=== PATIENT | male | born 1970 | race Caucasian/White ===

== ENCOUNTER 2018-11-09 11:06 | Emergency (ER) | payer OTHER ==
[2018-11-09 11:23] VITALS: BP 135/87
--- NOTE | 2018-11-09 11:56 | UC ---
Lower Extremity/Ankle HPI - HPI Summary HPI Summary: 48-year-old with the complaint of increasing pain at the bottom of his left foot over the past 3 days. He was wearing a boot when a nail went into his foot in the area just distal to the calcaneus bone. 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 He didn't notice any discomfort until the last day and now the area is significantly tender to touch. The patient is a heavy smoker but denies any significant past medical history. There is a history of diabetes in his family. The patient has no primary care. His vital signs are stable. His blood pressure is hypertensive at 135/87. He reports 5/10 pain to the left foot. Nurses note: "stepped on nail with left foot, 3 days ago. he states that the pain has persisted and he is concerned it is getting infected. last tetanus vaccine was 3-4 years ago." - History of Current Complaint Chief Complaint: UCLowerExtremity Stated Complaint: PUNCTURE WOUND TO FOOT Time Seen by Provider: 11/09/18 11:45 Pain Intensity: 5 - Allergies/Home Medications Allergies/Adverse Reactions: Allergies Allergy/AdvReac Type Severity Reaction Status Date / Time No Known Allergies Allergy Verified 11/09/18 11:23 Home Medications: Home Medications Ibuprofen TAB* [Advil TAB*] 800 mg PO ONCE PRN 11/09/18 [History Confirmed 11/09] PMH/Surg Hx/FS Hx/Imm Hx - Additional Past Medical History Additional PMH: PAST MEDICAL HISTORY: Patient denies significant past medical history including serious illness or surgery. Family history: Diabetes mellitus. 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 Previously Healthy: Yes - Surgical History Surgical History: None - Family History Known Family History: Positive: Hypertension - Social History Alcohol Use: Weekly Substance Use Type: None Smoking Status (MU): Heavy Every Day Tobacco Smoker Type: Cigarettes Amount Used/How Often: 1/2 PPD Length of Time of Smoking/Using Tobacco: 25 YEARS Review of Systems All Other Systems Reviewed And Are Negative: Yes Constitutional: Positive: Negative. Negative: Fever Skin: Negative: Rash, Bruising Respiratory: Positive: Negative Cardiovascular: Positive: Negative Gastrointestinal: Positive: Negative Genitourinary: Positive: Negative Musculoskeletal: Positive: Myalgia - Pain to palpation and with walking on the bottom of the left foot. Negative: Edema Physical Exam - Summary Physical Exam Summary: Appearance: The patient is well-appearing, is in no pain or distress, and is well-nourished. Eyes: Conjunctiva are clear. Pupils are equal and reactive to light and accommodation. Extra ocular muscle movement is intact. ENT: The hearing is grossly normal, the pharynx is normal, and the TMs are normal. There is no muffled or hoarse voice. No stridor. Neck: The neck is supple and there is no lymphadenopathy. Respiratory: The chest is nontender to palpation and without crepitus. The lungs are clear, there are normal breath sounds, and there is no respiratory distress. No wheezes, rales or rhonchi. Cardiovascular: Heart sounds reveal a regular rate and rhythm. There are no clicks, rubs or murmurs. There are no carotid bruits or thrills. Circulation is grossly intact. Abdomen: The abdomen is soft and nontender. There is no organomegaly. Bowel sounds are present and within normal limits. No point tenderness at McBurneys point. Musculoskeletal: Strength is intact. The patient moves all extremities. The bottom of the left foot shows a puncture wound that is closed that is approximately 2 mm in diameter. It is located just distal to the calcaneus bone. There is slight edema around the wound but no erythema. However, it is very tender to palpation. There is no ascending lymphangitis or cellulitis. Neurological: The patient is alert. Motor and sensory are examination grossly intact. Speech is normal. Psychological: The patient displays age appropriate behavior Skin: Negative for rashes. Triage Information Reviewed: Yes Vital Signs: Initial Vital Signs Temp 98.2 F 11/09/18 11:21 Pulse 73 11/09/18 11:21 Resp 16 11/09/18 11:21 BP 135/87 11/09/18 11:21 Pulse Ox 98 11/09/18 11:21 Lower Extremity Course/Dx - Course Course Of Treatment: 48-year-old with the complaint of increasing pain at the bottom of his left foot over the past 3 days. He was wearing a boot when a nail went into his foot in the area just distal to the calcaneus bone. 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 He didn't notice any discomfort until the last day and now the area is significantly tender to touch. The patient is a heavy smoker but denies any significant past medical history. There is a history of diabetes in his family. The patient has no primary care. His vital signs are stable. His blood pressure is hypertensive at 135/87. He reports 5/10 pain to the left foot. X RAY IMPRESSION: NO ACUTE OSSEOUS INJURY. NO APPRECIABLE EROSION OR PERIOSTEAL REACTION. PLAIN FILM FINDINGS OF OSTEOMYELITIS ARE RELATIVELY LATE FINDINGS. IF THERE IS PERSISTENT CLINICAL CONCERN FOR OSTEOMYELITIS, RECOMMEND CORRELATION WITH FOLLOWUP IMAGING, THREE- PHASE BONE SCANNING, WHITE BLOOD CELL SCAN, AND/OR MRI OF THE AFFECTED REGION. - Differential Dx/Diagnosis Differential Diagnosis/HQI/PQRI: Contusion, Fracture (Closed), Septic Arthritis , Sprain, Strain Provider Diagnosis: Puncture wound, Cellulitis Discharge - Sign-Out/Discharge Documenting (check all that apply): Patient Departure All imaging exams completed and their final reports reviewed: Yes - Discharge Plan Condition: Stable Disposition: HOME Prescriptions: Cephalexin CAP* [Keflex 500 CAP*] 500 mg PO QID #20 cap MDD 4 Levofloxacin TAB* [Levaquin TAB*] 750 mg PO DAILY #5 tab MDD 1 Patient Education Materials: Cellulitis (DC) Forms: *Gen. Provider Communication, *Work Release Referrals: No Primary Care Phys,NOPCP [Primary Care Provider] - Additional Instructions: WE DISCUSSED: PLEASE SEEK CARE AT THE EMERGENCY DEPARTMENT IF SYMPTOMS WORSEN OR IF NEW SYMPTOMS DEVELOP. FOLLOW UP WITH YOUR PRIMARY CARE PHYSICIAN IF CONDITION CONTINUES BEYOND 3 DAYS WITHOUT IMPROVEMENT. We are open from 7 a.m. to 10 p.m. Call us with any questions or concerns. YOUR DIAGNOSIS IS: SKIN INFECTION, CELLULITIS AT THE BOTTOM OF YOUR LEFT FOOT. ON X-RAY, THERE WAS NO EVIDENCE THAT THE NAIL PUNCTURED THE BONE. YOUR PRESCRIPTION RECOMMENDATION IS: I HAVE GIVEN YOU TO ANTIBIOTICS. KEFLEX . HE WILL TAKE 4 TIMES A DAY FOR 5 DAYS. LEVAQUIN. HE WILL TAKE ONCE A DAY FOR 5 DAYS. OTHER INSTRUCTIONS: IT IS IMPORTANT THAT YOU SOAK YOUR FOOT OFTEN POSSIBLE IN WARM SOAPY WATER. AT LEAST 4 TIMES A DAY. ELEVATE HER FOOT WHEN SITTING OR SLEEPING. IT IS ALSO IMPORTANT THAT YOU FOLLOW-UP AND GET RECHECKED IN THE NEXT 2 DAYS TO MAKE SURE YOU'RE GETTING BETTER. GO TO THE EMERGENCY DEPARTMENT TOMORROW IF YOUR FOOT STARTED SWELLING, GETS RED OR GETS MORE PAINFUL. YOU WOULD ALSO BENEFIT FROM CHECKING HER BLOOD PRESSURE AND FINDING PRIMARY CARE. YOUR BLOOD PRESSURE WAS ELEVATED TODAY. YOU CAN CALL [facility] FOR FOLLOW UP: [phone]. Hypertension Discharge Instructions: Your blood pressure reading today was 135/87, indicating HYPERTENSION. Follow- up with your provider within 4 weeks for blood pressure check and appropriate recommendations and treatment, as needed. For pain: Ibuprofen (Motrin and other brand names) 400-600mg PLUS acetaminophen (Tylenol and other brand names) 500mg - 1000mg every 8 hours. Maximum is 3 doses a day. If this dosage is required for more than 5 days, you should re-check with your doctor. The combination of these two over-the- counter medications can be more effective than each one taken alone. Please check with the pharmacist if you have questions about your allergies to these medications. To help you sleep: If you feel as if you want to calm down and get sleepy, over the counter diphenhydramine (Benadryl and other brand names), 25 mg up to every 8 hours may be useful. Please check with the pharmacist if you have questions about your allergies to these medications. Please check with the pharmacist if you have questions about your allergies to these medications. - Billing Disposition and Condition Condition: STABLE Disposition: Home
== END 2018-11-09 13:04 | disposition home or self-care (01) ==
LOC: UCEAST 11:06
DX: S91.332A Puncture wound without foreign body, left foot, initial encounter (principal); F17.210 Nicotine dependence, cigarettes, uncomplicated; W45.0XXA Nail entering through skin, initial encounter; Y92.9 Unspecified place or not applicable
CPT/HCPCS: 99212; G0463

== ENCOUNTER 2019-03-20 08:29 | Emergency (ER) | payer SELFPAY ==
[2019-03-20 09:59] VITALS: BP 133/89
[2019-03-20] MEDS ORDERED: Polymyx/Trimethoprim OPTH* 10 ML BTL BOTH EYES SCH (10:00)
--- NOTE | 2019-03-20 10:20 | ED ---
Respiratory - HPI Summary HPI Summary: Patient is a 49-year-old male presenting to the ED with a 4 day history of cough with production of yellow sputum as well as bilateral conjunctival injection with purulent drainage, worse in the morning. Patient is a smoker. Denies fevers, sweats, chills. Cough is productive, but not painful. Denies any SOB. Has not used anything [id number] however until yesterday began to take Keflex, he stated he had at home for an infection from last year. Denies any headache, visual changes, including blurry vision or double vision, back pain, urinary symptoms. He states he is otherwise healthy. History of hypertension. Takes no medications. - History of Current Complaint Chief Complaint: EDFluSymptoms Stated Complaint: SORE THROAT PER PT Time Seen by Provider: 03/20/19 09:06 Hx Obtained From: Patient Onset/Duration: Sudden Onset Timing: Constant Initial Severity: Moderate Current Severity: Moderate Pain Intensity: 0 Character: Cough (Productive) Sputum Amount: Large Sputum Color: Green Aggravating Factor(s): URI Alleviating Factor(s): Neb. Bronchodilators (Frequency Of Use) - Risk Factors Status Asthmaticus Risk Factors: Negative Pulmonary Embolism Risk Factors: Negative Cardiac Risk Factors: Negative Pseudomonas Risk Factors: Negative Tuberculosis Risk Factors: Negative - Allergy/Home Medications Allergies/Adverse Reactions: Allergies Allergy/AdvReac Type Severity Reaction Status Date / Time No Known Allergies Allergy Verified 11/09/18 11:23 PMH/Surg Hx/FS Hx/Imm Hx Previously Healthy: Yes Endocrine/Hematology History: Denies: Hx Diabetes, Hx Thyroid Disease Cardiovascular History: Denies: Hx Hypertension Respiratory History: Denies: Hx Asthma, Hx Chronic Obstructive Pulmonary Disease (COPD) GI History: Denies: Hx Ulcer Infectious Disease History: No Infectious Disease History: Denies: Hx Hepatitis, Hx Human Immunodeficiency Virus (HIV), History Other Infectious Disease, Traveled Outside the [place] in Last 30 Days - Family History Known Family History: Positive: Hypertension - Social History Alcohol Use: Weekly Substance Use Type: Reports: None Smoking Status (MU): Heavy Every Day Tobacco Smoker Type: Cigarettes Amount Used/How Often: 1/2 PPD Length of Time of Smoking/Using Tobacco: 25 YEARS Review of Systems Negative: Fever, Chills, Fatigue, Skin Diaphoresis Positive: Drainage, Erythema Negative: Palpitations, Chest Pain Positive: Shortness Of Breath, Cough Musculoskeletal: Negative Neurological: Negative All Other Systems Reviewed And Are Negative: Yes Physical Exam Triage Information Reviewed: Yes Vital Signs On Initial Exam: Initial Vitals Temp Pulse Resp BP Pulse Ox 98.0 F 73 18 150/99 94 03/20/19 08:35 03/20/19 08:35 03/20/19 08:35 03/20/19 08:35 03/20/19 08:35 Vital Signs Reviewed: Yes Appearance: Positive: Well-Appearing, Well-Nourished Skin: Positive: Warm, Skin Color Reflects Adequate Perfusion Head/Face: Positive: Normal Head/Face Inspection Eyes: Positive: EOMI, WERO, Conjunctiva Clear Neck: Positive: Supple, No Lymphadenopathy Respiratory/Lung Sounds: Positive: Clear to Auscultation, Breath Sounds Present Cardiovascular: Positive: Pulses are Symmetrical in both Upper and Lower Extremities Musculoskeletal: Positive: Strength/ROM Intact Neurological: Positive: Speech Normal Psychiatric: Positive: Affect/Mood Appropriate Diagnostics - Vital Signs Vital Signs Temp Pulse Resp BP Pulse Ox 03/20/19 10:10 97.8 F 64 15 133/89 97 03/20/19 09:48 64 133/89 97 03/20/19 09:19 70 128/101 95 03/20/19 09:00 85 94 03/20/19 08:49 77 123/79 92 03/20/19 08:48 73 94 03/20/19 08:35 98.0 F 73 18 150/99 94 - Laboratory Lab Statement: Any lab studies that have been ordered have been reviewed, and results considered in the medical decision making process. Disposition - Course Course Of Treatment: During the ED course, the patient is evaluated for cough with production, congestion, slight rhinorrhea and bilateral conjunctival injection with purulent drainage, worse in the morning. Denies fevers, sweats, chills. Physical examination, patient appears well with no signs of conjunctival injection. No cough is noted. Lungs CTA. RRR. Patient states he is asymptomatic at this time, however in the morning over the past 4 days, he has had purulent drainage bilaterally to both eyes. He is given polymyxin drops here in the ED. While chest x-ray is negative, he states his cough is harsh, his difficulty breathing and has copious amounts production. This patient is a smoker, we'll cover to avoid PNA with azithromycin. - Diagnoses Provider Diagnoses: Bronchitis, Conjunctivitis Discharge - Sign-Out/Discharge Documenting (check all that apply): Patient Departure Patient Received Moderate/Deep Sedation with Procedure: No - Discharge Plan Condition: Stable Disposition: HOME Prescriptions: Albuterol HFA INHALER* [Ventolin HFA Inhaler*] 1 puff INH Q4H PRN #1 mdi PRN Reason: Shortness Of Breath Azithromyxin CARLOS (NF) [Z-Carlos (Zithromax) 250 mg tabs #6] 2 tab PO .TODAY, THEN 1 DAILY #6 tab Patient Education Materials: Acute Bronchitis (ED), Conjunctivitis (ED) Forms: *Work Release Referrals: No Primary Care Phys,NOPCP [Primary Care Provider] - Additional Instructions: polymyxin drops every 4 hours while awake azithromycin 2 tabs today and 1 tab daily x 4 days - Billing Disposition and Condition Condition: STABLE Disposition: Home
== END 2019-03-20 10:10 | disposition home or self-care (01) ==
LOC: ED 08:29
DX: J40 Bronchitis, not specified as acute or chronic (principal); H10.33 Unspecified acute conjunctivitis, bilateral; I10 Essential (primary) hypertension; F17.210 Nicotine dependence, cigarettes, uncomplicated
CPT/HCPCS: 71046; 99282